=== PATIENT | female | born 1980 | race Caucasian/White ===

== ENCOUNTER 2017-05-09 09:39 | Outpatient (CLI) | payer OTHER | END 2017-05-09 20:25 | disposition home or self-care (01) | LOC: SUS 09:39 | PROVIDERS: ATTEND Family Medicine | DX: N83.202 Unspecified ovarian cyst, left side (principal) | CPT/HCPCS: 76770; 76830-TC; 76857 ==

== ENCOUNTER 2018-11-10 13:00 | Outpatient (CLI) | payer OTHER | END 2018-11-10 21:10 | disposition home or self-care (01) | LOC: SMA 13:00 | PROVIDERS: ATTEND Family Medicine | DX: Z12.31 Encounter for screening mammogram for malignant neoplasm of breast (principal) | CPT/HCPCS: 77067 ==